=== PATIENT | male | born 1935 | race Caucasian/White ===

== ENCOUNTER 2019-01-07 05:55 | Day surgery (SDC) | payer MEDICARE, BC ==
[2019-01-07] MEDS ORDERED: Midazolam 1 MG/ML 2 ML SDV IV ONE ×3 (05:56→07:20)
[2019-01-07] MEDS ORDERED: fentaNYL 100 MCG/2 ML SDV IV ONE ×3 (05:56→07:19)
[2019-01-07] MEDS ORDERED: Dextrose 5%-0.45% NaCl 1,000 ML IV SCH (06:00)
[2019-01-07] MEDS ORDERED: fentaNYL 100 MCG/2 ML SDV ONE (06:17)
[2019-01-07] MEDS ORDERED: Midazolam 1 MG/ML 2 ML SDV ONE (06:17)
[2019-01-07 10:04] VITALS: BP 130/70; PULSE 67
--- NOTE | 2019-01-10 08:33 | OR ---
DATE: 01/07/2019 PROCEDURE: Esophagogastroduodenoscopy, NBI, and multiple pinch biopsies. INSTRUMENT USED: [id number]-HQ190 Olympus video panendoscope. PREMEDICATIONS: No oral or topical anesthesia used. Fentanyl 100 mcg intravenous, Versed 2 mg intravenous. The procedure was done under pulse oximetry, BP recording, and electronic device monitor. INDICATION: The patient with unexplained iron deficiency anemia. Esophagogastroduodenoscopy is performed for detection of any active erosive lesions, malignancy also under consideration, H. pylori status to be determined. Small bowel biopsies to be obtained for celiac disease if indicated, endoscopic hemostasis therapy if needed. PROCEDURE IN DETAIL: The scope was passed with ease. Adequate visualization of the esophagus was made from proximal to distal areas. No upper esophageal lesions identified. No distal esophageal stricture. No uphill or downhill esophageal varices. No Giselle-Bacon tear. No evidence of erosive esophagitis by [place] criteria. No esophageal polyp or tumor mass identified. Z-line was seen at around 40 cm distal to the oral verge, configuration consistent with grade 1 by ZAP classification. No proximal gastric varices noted. Gastric fundus examination by retroflexion showed diminutive benign-appearing polyps. Patchy erythema was noted in the mid gastric body. No gastric ulcer, malignant mass, or vascular ectasia identified. Duodenal bulb showed no ulcer. Visualized second part of the duodenum showed some prominent benign-appearing folds, NBI views were obtained, multiple pinch biopsies were obtained and sent for histopathology. Multiple pinch biopsies were also obtained from the second part of the duodenum, four in number, and tissues were also obtained from the duodenal bulb at 9 and 12 o'clock positions and sent for any histopathologic evidence of celiac disease. Multiple pinch biopsies were obtained from the gastric antrum and proximal body and sent for PyloriTek test for H. pylori and histopathology. No bleeding was noted from any of the visualized areas at the completion of examination. Photographs were taken of the second part of the duodenum with prominent folds, duodenal bulb, gastric antrum, fundus, and distal esophagus. IMPRESSION: Diminutive gastric fundus polyps. The patient tolerated the procedure well. [facility] /[id number]
== END 2019-01-07 09:38 | disposition home or self-care (01) ==
LOC: DL.ENDO 05:55
PROVIDERS: ATTEND Internal Medicine Gastroenterology
DX: D64.9 Anemia, unspecified (principal); K31.7 Polyp of stomach and duodenum; K21.9 Gastro-esophageal reflux disease without esophagitis; K31.89 Other diseases of stomach and duodenum; I25.10 Atherosclerotic heart disease of native coronary artery without angina pectoris; E78.00 Pure hypercholesterolemia, unspecified; M19.90 Unspecified osteoarthritis, unspecified site; Z95.5 Presence of coronary angioplasty implant and graft
CPT/HCPCS: 43239; 87077; J2250; J3010; J7042

== ENCOUNTER 2024-06-20 06:21 | Day surgery (SDC) | payer MEDICARE, BC ==
[2024-06-20] MEDS ORDERED: Lactated Ringers 1,000 ML IV ONE (06:22)
[2024-06-20] MEDS ORDERED: Lidocaine 2% 20 ML MDV NERVRT ONE (06:22)
[2024-06-20] MEDS ORDERED: Propofol 200 MG/20 ML SDV IV ONE (06:22)
[2024-06-20] MEDS: Lactated Ringers 1,000 ML IV SCH (07:00)
[2024-06-20 10:14] VITALS: BP 151/59; PULSE 58
== END 2024-06-20 10:00 | disposition home or self-care (01) ==
LOC: DL.ENDO 06:21
PROVIDERS: ATTEND Internal Medicine Gastroenterology
DX: K22.2 Esophageal obstruction (principal); K21.9 Gastro-esophageal reflux disease without esophagitis; E78.00 Pure hypercholesterolemia, unspecified
CPT/HCPCS: 43239; 43450; J7120; 88305; J2003; J2704